=== PATIENT | female | born 1950 | race African-American/Black ===

== ENCOUNTER 2018-12-19 20:10 | Inpatient (IN) | payer MEDICARE, OTHER ==
[~2018-12-19] VITALS: Ht 170.2 cm; Wt 57.6 kg
[2018-12-19] MEDS ORDERED: ALBUTEROL (0.083%) 2.5MG/3ML NEB HHN STA (20:16)
[2018-12-19] MEDS ORDERED: MAGNESIUM 2 G PREMIX 50 ML IV STA (20:16)
[2018-12-19] MEDS ORDERED: METHYLPREDNISOLONE SOD SUCC 125 MG/2 ML VIAL IV STA (20:16)
[2018-12-19] MEDS ORDERED: IPRATROPIUM BROMIDE (0.02%) 0.5MG/2.5ML NEB HHN STA (20:16)
[2018-12-19 20:51] LABS: BASOPHILS % 0.4 % (0.0-2.0); EOSINOPHILS % 1.5 % (0.0-5.0); HEMATOCRIT. 36.5 % (36.0-48.0); HEMOGLOBIN. 11.8 g/dL (12.0-16.0); MEAN CORPUSCULAR HEMOGLOBIN 29.3 pg (28.0-32.0); MEAN CORPUSCULAR VOLUME 90.7 fL (81.0-99.0); MEAN PLATELET VOLUME 8.5 fl (7.4-10.4); MONOCYTES % 8.2 % (2.0-8.0); NEUTROPHILS % 54.9 % (40.0-76.0); PLATELET 408 x1000/uL (130-400); RED BLOOD CELL COUNT 4.03 mill/uL (4.2-5.4); RED CELL DISTRIBUTION WIDTH 14.2 % (11.6-14.6)
[2018-12-19 20:58] LABS: CHLORIDE 111 mEq/L (98-107)
[2018-12-19 21:05] LABS: PROTHROMBIN TIME 10.1 sec (9.1-11.1)
[2018-12-19] MEDS ORDERED: ASPIRIN 325MG EC TABLET PO ONE (21:30)
[2018-12-19] MEDS ORDERED: NITROGLYCERIN OINT 1GM/INCH UDPKT TD ONE (21:30)
[2018-12-19] MEDS ORDERED: FUROSEMIDE 40MG/4ML VIAL IVP ONE (21:30)
[2018-12-19] MEDS ORDERED: ACETAMINOPHEN 325MG TABLET PO PRN (22:45)
[2018-12-19] MEDS ORDERED: HYDROMORPHONE HCL/PF 2MG/ML CPJ IV PRN (22:45)
[2018-12-19] MEDS ORDERED: DOCUSATE SODIUM 100MG CAPSULE PO PRN (22:45)
[2018-12-19] MEDS ORDERED: DIPHENHYDRAMINE 50MG/ML VIAL IV PRN (22:45)
[2018-12-19] MEDS ORDERED: LORAZEPAM 2MG/ML CPJ IV PRN (22:45)
[2018-12-19] MEDS ORDERED: GUAIFENESIN 200MG/10ML SUGAR FREE UDC PO PRN (22:45)
[2018-12-19] MEDS ORDERED: IPRATROPIUM/ALBUTEROL 0.5-3(2.5)MG/3ML NEB INH PRN (22:45)
[2018-12-19] MEDS ORDERED: ONDANSETRON HCL 4MG/2ML INJ IV PRN (22:45)
[2018-12-19] MEDS ORDERED: MAGNESIUM/ALUMINUM HYDROXIDE/SIMETHICONE 30ML UDC PO PRN (22:45)
[2018-12-19] MEDS ORDERED: HYDROCODONE/ACETAMINOPHEN 10/325MG TABLET PO PRN (22:45)
[2018-12-19 23:20] VITALS: BP 163/80
[2018-12-20] VITALS (10 sets, daily range): BP systolic 151–177; BP diastolic 69–100
[2018-12-20] MEDS: CLONIDINE 0.1MG TABLET PO PRN ×2 (01:16→22:17)
[2018-12-20] MEDS: METHYLPREDNISOLONE SOD SUCC 125 MG/2 ML VIAL IV SCH ×3 (01:16→11:32)
[2018-12-20] MEDS: SODIUM CHLORIDE 0.9% INJ 3ML FLUSH IVF SCH ×3 (06:03→22:00)
[2018-12-20] MEDS ORDERED: ATEN100T MT (07:45)
[2018-12-20 07:59] LABS: HEMATOCRIT. 34.8 % (36.0-48.0); HEMOGLOBIN. 11.5 g/dL (12.0-16.0); MEAN CORPUSCULAR HEMOGLOBIN 29.4 pg (28.0-32.0); MEAN CORPUSCULAR VOLUME 89.4 fL (81.0-99.0); MEAN PLATELET VOLUME 8.8 fl (7.4-10.4); PLATELET 345 x1000/uL (130-400); RED BLOOD CELL COUNT 3.89 mill/uL (4.2-5.4); RED CELL DISTRIBUTION WIDTH 14.2 % (11.6-14.6)
[2018-12-20 08:09] LABS: CHLORIDE 108 mEq/L (98-107)
[2018-12-20 08:21] LABS: CREATINE KINASE 112 IU/L (26-192); T4 FREE 1.26 ng/dL (0.76-1.46)
[2018-12-20 08:23] LABS: LDL CHOLESTEROL 129 mg/dL (5-100)
[2018-12-20 08:27] LABS: CREATINE KINASE MB FRACTION 3.3 ng/mL (0.5-3.6); HDL CHOLESTEROL 51 mg/dL (40-59)
[2018-12-20] MEDS ORDERED: ASPIRIN 81MG EC TABLET PO SCH (09:00)
[2018-12-20] MEDS: ENOXAPARIN 40MG/0.4ML SYR SUBCUT SCH ×2 (09:00→10:45)
[2018-12-20] MEDS ORDERED: REGADENOSON 0.4 MG/5 ML IV NR (11:30)
[2018-12-20] MEDS: FUROSEMIDE 40MG/4ML VIAL IV SCH ×2 (11:32→21:00)
[2018-12-20] MEDS: HYDRALAZINE 20MG/ML VIAL IV PRN ×2 (11:33→16:07)
[2018-12-20 12:54] LABS: PLATELET ESTIMATE NORMAL
[2018-12-20 17:41] LABS: PHOSPHORUS 3.8 mg/dL (2.5-4.9)
[2018-12-20 17:46] LABS: CREATINE KINASE MB FRACTION 2.7 ng/mL (0.5-3.6)
[2018-12-20] MEDS ORDERED: NICOTINE 7MG PATCH TD SCH (18:45)
[2018-12-20] MEDS ORDERED: IPRATROPIUM/ALBUTEROL 0.5-3(2.5)MG/3ML NEB HHN SCH (20:00)
[2018-12-20] MEDS: METHYLPREDNISOLONE SOD SUCC 40 MG/ML VIAL IV SCH (22:00)
[2018-12-21] VITALS: BP 135/69
[2018-12-21 02:00] VITALS: BP 140/68
[2018-12-21 04:00] VITALS: BP 147/81
[2018-12-21] MEDS: SODIUM CHLORIDE 0.9% INJ 3ML FLUSH IVF SCH (05:37)
[2018-12-21] MEDS: METHYLPREDNISOLONE SOD SUCC 40 MG/ML VIAL IV SCH (05:37)
[2018-12-21 06:00] VITALS: BP 148/82
[2018-12-21] MEDS ORDERED: REGADENOSON 0.4 MG/5 ML IV ONE (08:51)
[2018-12-21] MEDS ORDERED: NICOTINE 21MG PATCH TD SCH (10:24)
[2018-12-21] MEDS ORDERED: CLOPIDOGREL 75MG TABLET PO SCH (13:00)
== END 2018-12-21 14:31 | disposition left against medical advice (07) | DRG 280 ==
LOC: ER 20:10 → 5EST 21:17 → EDBEDREQ 21:23 → EDBEDREQTM 21:23 → ENRESERV 21:32
PROVIDERS: ADMIT Internal Medicine; ATTEND Internal Medicine
PROC: 5A09357 Assistance with Respiratory Ventilation, Less than 24 Consecutive Hours, Continuous Positive Airway Pressure (ICD-10-PCS; principal; 2018-12-19)
DX: I21.4 Non-ST elevation (NSTEMI) myocardial infarction (principal); J96.00 Acute respiratory failure, unspecified whether with hypoxia or hypercapnia; I50.31 Acute diastolic (congestive) heart failure; E46 Unspecified protein-calorie malnutrition; N17.9 Acute kidney failure, unspecified; J44.1 Chronic obstructive pulmonary disease with (acute) exacerbation; Z68.1 Body mass index [BMI] 19.9 or less, adult; Z53.21 Procedure and treatment not carried out due to patient leaving prior to being seen by health care provider; I11.0 Hypertensive heart disease with heart failure; D64.9 Anemia, unspecified; F17.200 Nicotine dependence, unspecified, uncomplicated; I25.10 Atherosclerotic heart disease of native coronary artery without angina pectoris; Z88.8 Allergy status to other drugs, medicaments and biological substances
CPT/HCPCS: 36415; 71045; 76770; 78452; 80061; 82550; 82553; 83605; 83735; 83880; 84100; 84439; 84481; 84484; 93005; 93017; 93306; 94640; 94660; 96365; 96375; 99291; A9500; J0360; J1200; J1650; J1940; J2060; J2405; J2785; J2920; J2930; J3475; J7611; J7620